=== PATIENT | male | born 1995 | race Two or more races ===

== ENCOUNTER 2023-06-06 19:16 | Emergency (ER) | payer OTHER ==
[~2023-06-06] VITALS: Ht 172.7 cm; Wt 110.0 kg
[2023-06-06 21:22] LABS: Basophils # (auto) 0.1 10 ^3/uL (0-0.2); Basophils % (auto) 0.4 % (0.0-2.0); Eosinophils # (auto) 0 10 ^3/uL (0-0.8); Lymphocytes # (auto) 2.4 10 ^3/uL (0.4-5.4); White Blood Cell 13.9 10^3/uL (4.4-10.8)
[2023-06-06 21:24] LABS: Eosinophils % (auto) 0.2 % (0.0-7.0); Hematocrit 51.4 % (41.0-53.0); Hemoglobin 17.8 g/dL (13.5-17.5); Lymphocytes % (auto) 17.6 % (10.0-50.0); Mean Corpuscular Hemoglobin 29.7 pg (28.0-32.0); Mean Corpuscular Hgb Conc. 34.6 g/dL (32.0-36.0); Mean Corpuscular Volume 85.9 fL (80.0-100.0); Monocytes % (auto) 6.9 % (0.0-12.0); Neutrophils # (auto) 10.4 10 ^3/uL (1.6-8.6); Neutrophils % (auto) 74.9 % (37.0-80.0); Nucleated Red Blood Cells % 0.1 %; Red Blood Cells 5.99 10^6/uL (4.5-5.90); Red Cell Distribution Width 13.7 % (11.8-14.3)
[2023-06-06 21:27] LABS: Chloride 110 mmol/L (98-107); Potassium 4.1 mmol/L (3.5-5.1); Sodium 143 mmol/L (136-145)
[2023-06-06 21:28] LABS: Anion Gap 6 (5-15); Carbon Dioxide 27 mmol/L (20-30)
[2023-06-06 21:29] LABS: Calcium 9.5 mg/dL (8.7-10.4)
[2023-06-06 21:33] LABS: BUN/Creatinine Ratio 8.8 (10.0-20.0); Blood Urea Nitrogen 8 mg/dL (9-23); Glucose 93 mg/dL (74-106)
[2023-06-06 22:46] VITALS: BP 136/93; PULSE 79; RESP 18; TEMP 97.7; O2SAT 99
== END 2023-06-06 22:47 | disposition home or self-care (01) ==
LOC: EDBD 19:16 → ER 19:16
DX: R55 Syncope and collapse (principal); R53.1 Weakness; F15.90 Other stimulant use, unspecified, uncomplicated
CPT/HCPCS: 36415; 80048; 85025; 93005